=== PATIENT | male | born 1970 | race African-American/Black ===

== ENCOUNTER 2023-02-21 20:38 | Emergency (ER) | payer OTHER ==
[~2023-02-21] VITALS: Ht 177.8 cm; Wt 100.2 kg
[2023-02-21] MEDS ORDERED: CEPHALEXIN MONOHYDRATE 250 MG CAP ONE (23:07)
[2023-02-21 23:21] LABS: INR 1.07; PROTHROMBIN TIME 14.6 seconds (11.9-14.5)
[2023-02-21] MEDS ORDERED: WARFARIN SODIUM5 MG PO (23:21)
[2023-02-21] MEDS ORDERED: WARFARIN SODIUM1 MG PO (23:21)
[2023-02-21] MEDS ORDERED: CEPHALEXIN500 MG PO (23:21)
[2023-02-21] MEDS ORDERED: ENOXAPARIN SODIUM INJ 100 MG/ML SYR SC STA (23:32)
[2023-02-21] MEDS ORDERED: ENOXAPARIN SODIUM INJ 100 MG/ML SYR SC ONE (23:36)
[2023-02-21] MEDS ORDERED: ENOXAPARIN100 MG/1 M SC ×2 (23:37→23:40)
[2023-02-21] MEDS ORDERED: CEPHALEXIN MONOHYDRATE 250 MG CAP PO ONE (23:45)
[2023-02-21 23:52] VITALS: BP 155/91; PULSE 78; RESP 18; TEMP 98.6; O2SAT 96
== END 2023-02-21 23:52 | disposition home or self-care (01) ==
LOC: FSED 20:42
DX: I82.431 Acute embolism and thrombosis of right popliteal vein (principal); Z79.01 Long term (current) use of anticoagulants
CPT/HCPCS: 36415; 85610; 93971; 96372; 99283; J1650